=== PATIENT | female | born 1975 | race Two or more races ===

== ENCOUNTER 2021-12-28 22:00 | Emergency (ER) | payer SELFPAY ==
[~2021-12-28] VITALS: Ht 167.6 cm; Wt 74.8 kg
--- NOTE | 2021-12-28 22:15 | NUR ---
PT ON 3870 BY ELIZABETH FOR A DANGER TO HERSELF AND GRAVELY DISABLE 12/28/21 AT 2039
--- NOTE | 2021-12-28 22:40 | NUR ---
COVID SWAB SENT BY HARSHIL MACARIO
--- NOTE | 2021-12-28 22:54 | NUR ---
Received pt 46 yrs female walking in c/o both lower extramity swallen dinases hx of truma
--- NOTE | 2021-12-28 22:55 | NUR ---
VINNIE FROM FOR HOMELESS PATIENT WANDERING INTO A PRIVATE RESIDENCE BECAUSE SHE IS "COLD AND HUNGRY" PLACED ON [address] HOLD BY [employer] FOR GD AND DTS. PT ORIENTED X1 CALM ON ASSESSMENT BUT POOR HISTORIAN. PT CHANGED INTO GOWN, SITTER AT BEDSIDE, AND SAFETY MEASURES IN PLACE.
--- NOTE | 2021-12-28 23:03 | NUR ---
URINE COLLECTED AND SENT TO LAB
[2021-12-29 00:15] LABS: BILIRUBIN,URINE NEGATIVE (NEGATIVE); COLOR,URINE DARK YELLOW (YELLOW); LEUKOCYTE ESTERASE ,URINE 1+ (NEGATIVE); NITRITE, URINE NEGATIVE (NEGATIVE); PROTEIN,URINE NEGATIVE (NEGATIVE); UGLUCOSE NEGATIVE (NEGATIVE)
--- NOTE | 2021-12-29 00:16 | NUR ---
CALM AND ASLEEPY
[2021-12-29 00:17] LABS: BASOPHILS % (AUTO) 0.6 % (0.0-2.0); EOSINOPHILS % (AUTO) 2.5 % (0.0-6.0); HEMATOCRIT 37 % (33-45); HEMOGLOBIN 12.3 g/dL (11.5-14.8); LYMPHOCYTES # (AUTO) 3.6 K/uL (0.8-4.8); LYMPHOCYTES % (AUTO) 56.6 % (20.0-44.0); MEAN CORPUSCULAR HGB CONC 34 g/dl (31.0-36.0); MEAN CORPUSCULAR VOLUME 88 fL (82-100); MONOCYTES # (AUTO) 0.4 K/uL (0.1-1.30); MONOCYTES % (AUTO) 5.9 % (2.0-12.0); NEUTROPHILS # (AUTO) 2.2 K/uL (1.8-8.9); NEUTROPHILS % (AUTO) 34.4 % (43.0-81.0); PLATELET COUNT (AUTO) 280 K/uL (150-450); RED BLOOD CELL COUNT(AUTO) 4.16 MIL/uL (4.0-5.2); WHITE BLOOD COUNT (AUTO) 6.4 K/uL (4.3-11.0)
[2021-12-29 00:22] LABS: BACTERIA,URINE Few /HPF (None Seen); RBC,URINE 0-2 /HPF (0-2); SQUAMOUS EPITHELIAL CELL,UR Moderate /HPF (None Seen); TRICHOMONAS,URINE Few /HPF (None Seen)
[2021-12-29 00:49] LABS: CALCIUM, SERUM 8.8 mg/dL (8.5-10.1); CARBON DIOXIDE 27 mmol/L (21-32); CHLORIDE 106 mmol/L (98-107); CREATININE 0.5 mg/dL (0.6-1.3); GLUCOSE 83 mg/dL (74-106); POTASSIUM 3.6 mmol/L (3.5-5.1); SODIUM SERUM 140 mmol/L (136-145); UREA NITROGEN, BLOOD 11 mg/dL (7-18)
[2021-12-29 00:55] LABS: ALANINE AMINOTRANSFERASE 28 U/L (12-78); ALBUMIN 3.5 g/dL (3.4-5.0); ALCOHOL, BLOOD < 3 mg/dL (0-0); ALKALINE PHOSPHATASE 108 U/L (46-116); ASPARTATE AMINOTRANSFERASE 30 U/L (15-37); BILIRUBIN,DIRECT 0.1 mg/dL (0.0-0.2); BILIRUBIN,TOTAL 0.3 mg/dL (0.2-1.0)
[2021-12-29 00:56] LABS: ACETAMINOPHEN 0 ug/ml (10-30)
--- NOTE | 2021-12-29 01:21 | NUR ---
Moncho shafer in [facility] - 12/29/21 at 0121 by TAMIKO [phone]
[2021-12-29 01:45] LABS: TOTAL PROTEIN, SERUM 7.7 g/dL (6.4-8.2)
--- NOTE | 2021-12-29 04:55 | NUR ---
have adminssion get info from patient for insurance purpose
--- NOTE | 2021-12-29 04:56 | NUR ---
PER SHANTE, SHE WAS'NT ABLE TO EVALUATE PT. CALL HER ONCE PT IS AWAKE.
--- NOTE | 2021-12-29 08:17 | NUR ---
ENEDINA SALDIVAR [phone] LEFT VM
--- NOTE | 2021-12-29 09:27 | NUR ---
ENEDINA SALDIVAR [phone] LEFT VM
--- NOTE | 2021-12-29 14:10 | NUR ---
HOLD BROKEN BY ANETA MELGAR, PATIENT OK TO BE DISCHARGED
[2021-12-29] MEDS ORDERED: ONDANSETRON 4 MG TAB.RAPDIS PO ONE (15:30)
[2021-12-29] MEDS ORDERED: METRONIDAZOLE 500 MG TABLET PO ONE (15:30)
[2021-12-29] MEDS ORDERED: METRONIDAZOLE 500 MG TABLET ONE ×2 (15:32→15:34)
[2021-12-29] MEDS ORDERED: ONDANSETRON 4 MG TAB.RAPDIS ONE (15:32)
--- NOTE | 2021-12-29 16:01 | NUR ---
Patient given written and verbal discharge instructions. Patient verbalizes understanding of instructions. Patient is ambulatory with steady gait. Refuses offer of senior care placement. Patient given list of available shelters in surrounding area. All belongings given back to patient, name band removed. In proper clothing upon discharge (shirt, pants and shoes).
[2021-12-29 16:04] VITALS: BP 112/67
--- NOTE | 2021-12-29 16:20 | NUR ---
PROVIDED W TAP CARD
== END 2021-12-29 16:21 | disposition home or self-care (01) ==
LOC: ER 22:02
DX: Z02.2 Encounter for examination for admission to residential institution (principal); A59.9 Trichomoniasis, unspecified; F19.90 Other psychoactive substance use, unspecified, uncomplicated; Z59.00 Homelessness unspecified; Z20.822 Contact with and (suspected) exposure to COVID-19
CPT/HCPCS: 99285; 85025; 80048; 87086; 80076; 84703; 81001; 36415; 87426; 80143; 80320; 80307; C9803; Q0162; G0480